=== PATIENT | female | born 1995 | race African-American/Black ===

== ENCOUNTER 2019-07-10 19:35 | Emergency (ER) | payer BC ==
[2019-07-10 20:04] LABS: Bilirubin Negative (Negative); Blood, Urine Negative (Negative); Clarity Clear (Clear); Glucose, Urine (Dipstick) Normal (Negative); Leukocyte Negative Leu/uL (Negative); Nitrite Negative (Negative); Protein, Urine (Dipstick) 20 mg/dL (Neg-Trace); Urobilinogen Normal mg/dL (Less than 2)
[2019-07-10 20:07] LABS: Pregnancy Test - Urine (BHCG) POSITIVE (Negative); Pregu Control Background? CLEAR/WHITE (CLR/WHITE); Pregu Control Bar Appear? YES (CONTROL BAR); Specific Gravity 1.031 (1.002-1.036)
[2019-07-10] MEDS ORDERED: Ketorolac Tromethamine 30 MG/ML VIAL ONE (20:11)
[2019-07-10] MEDS ORDERED: Ondansetron PF 4 MG/2 ML Vial ONE (20:11)
[2019-07-10] MEDS ORDERED: Morphine 4 MG/ML VIAL ONE (20:27)
[2019-07-10 20:29] LABS: #Basophils 0.1 thou/uL (0.0-0.2); #Eosinphils 0.2 thou/uL (0.0-0.7); #Lymphocytes 2.7 thou/uL (1.20-3.40); #Monocytes 0.7 thou/uL (0.11-0.59); #Neutrophils 2.8 thou/uL (1.40-6.50); %Basophils 0.9 % (0.0-1.0); %Lymphocytes 41.2 % (21.0-51.0); %Monocytes 11.1 % (0.0-10.0); %Neutrophils 43.8 % (42.0-75.0); Mean Corpuscular HGB CONC 32.1 g/dL (32.0-36.0); Mean Corpuscular Volume 84.1 fL (78.0-98.0); Mean Platelet Volume 8.3 fL (7.4-10.4); Platelet Count 205 thou/uL (130-400); RBC Distribution Width 14.3 % (11.5-14.5); Red Blood Cell (RBC) Count 4.09 mill/uL (4.20-5.40); White Blood Cell (WBC) Count 6.5 thou/uL (4.8-10.8)
[2019-07-10 20:51] LABS: ALT (SGPT) 10 U/L (8-55); AST (SGOT) 20 U/L (5-34); Albumin 3.8 g/dL (3.5-5.0); Alkaline Phosphatase 55 U/L (40-110); Anion Gap 9 mmol/L (10-20); BUN (Urea Nitrogen) 7 mg/dL (7.0-18.7); Bilirubin, Total 0.4 mg/dL (0.2-1.2); Calc. Creatinine Clearance 0 mL/min (70-130); Calcium 8.9 mg/dL (7.8-10.44); Carbon Dioxide 24 mmol/L (22-29); Chloride 104 mmol/L (98-107); Estimated GFR-MDRD Greater than 90; Globulin 3.5 g/dL (2.4-3.5); Glucose 81 mg/dL (70-105); Potassium 3.4 mmol/L (3.5-5.1); Protein, Total 7.3 g/dL (6.0-8.3); Sodium 134 mmol/L (136-145)
--- NOTE | 2019-07-10 21:14 | ULT ---
EXAM: Pelvic ultrasound HISTORY: Left lower quadrant pain in a female COMPARISON: None TECHNIQUE: Multiple grayscale and color Doppler images were obtained in a transabdominal pelvic ultra sound. Spectral analysis of the Doppler waveforms of the ovaries were performed. FINDINGS: UTERUS: There is an intrauterine gestational sac. This contains a yolk sac and pole. De Beque-rump length: 14 mm which estimates gestational age at 7 weeks 5 days. A heart rate is detected at 152 bpm. No evidence of subchorionic hemorrhage. A small amount of free fluid is seen in the pelvis. RIGHT OVARY: Normal flow without focal mass. LEFT OVARY: Normal flow without focal mass. IMPRESSION: Single live intrauterine with estimated age of 7 weeks 5 days.
== END 2019-07-10 22:16 | disposition home or self-care (01) ==
LOC: ERS 19:35
DX: O99.89 Other specified diseases and conditions complicating pregnancy, childbirth and the puerperium (principal); R10.32 Left lower quadrant pain; Z3A.11 11 weeks gestation of pregnancy
CPT/HCPCS: 76856; 80053; 81003; 81025; 84702; 85025; 86900; 86901; 96374; 96375; J1885; J2270; J2405

== ENCOUNTER 2019-10-12 13:42 | Outpatient (CLI) | payer BC ==
--- NOTE | 2019-10-12 14:34 | ULT ---
ULTRASOUND OBSTETRICAL COMPLETE: DATE: 10/12/2019 HISTORY: ICD-10: "Z 34.82 encounter for supervision of other normal , second trimester" FINDINGS: number: barber lie: Cephalic Maternal cervix: 3.5 cm. Closed. Placenta: Anterior. No placenta previa. Placental lakes are noted. Amniotic fluid volume: SEVEN = 13 cm heart rate: 134 bpm The following anatomy is visualized, with no evidence of anomalies: Head, cerebellum, lateral ventricles, four-chamber heart, stomach, kidneys, cord insertion, bladder, cervical spine, thoracic spine, lumbar spine, sacrum, nose and lips, upper extremities, lower extremities, and three-vessel cord. biometry: Biparietal diameter (BPD): 5.0 cm 21 w 1 d Head circumference (HC): 18.9 cm 21 w 2 d Abdominal circumference (AC): 15.4 cm 20 w 5 d Femur length (FL): 3.8 cm 22 w 1 d Average ultrasound age (AUA): 21 w 3 d Estimated date of delivery (EMILIA): 02/19/2020 Estimated weight (EFW): 410 g +/- 60 g IMPRESSION: 1) Live 2nd trimester intrauterine gestation. 2) Estimated gestational age of 21 weeks, 3 days 3) cephalic lie. 4) no anatomic abnormality identified.
== END 2019-10-12 13:43 | disposition home or self-care (01) ==
LOC: BICULT 13:42
PROVIDERS: ATTEND Family Medicine
DX: Z34.82 Encounter for supervision of other normal pregnancy, second trimester (principal); Z3A.21 21 weeks gestation of pregnancy
CPT/HCPCS: 76805